=== PATIENT | female | born 2000 | race Caucasian/White ===

== ENCOUNTER 2023-12-07 12:33 | Emergency (ER) | payer OTHER, SELFPAY ==
[2023-12-07 12:39] VITALS: BP 138/73; PULSE 66; TEMP 36.6; O2SAT 99; BMI 27.5
[2023-12-07 12:48] VITALS: PULSE 65
--- NOTE | 2023-12-07 12:49 | ECG_ITS ---
The [facility] Test Date: 2023-12-07 Pat Name: GYPSY FLEMING Department: Room: - Gender: Female [employer]: : 2000 Requested By: ZUHAIR FRIEND Order Number: [id number] Reading MD: ZUHAIR FRIEND Measurements Intervals [place] Rate: 65 P: 30 OK: 140 QRS: 76 QRSD: 96 T: 57 QT: 366 QTc: 378 Interpretive Statements 1100 Sinus rhythm 1102 Sinus arrhythmia 9110 normal ECG Compared to ECG 05/03/2019 06:49:01 No significant changes Electronically Signed On 12-10-2023 6:51:50 EDT by ZUHAIR FRIEND
--- NOTE | 2023-12-07 12:49 | XR_ITS ---
The [address] [address] Patient Name: GYPSY FLEMING MRN: [id number] date: 2000 Sex: F Assigned Patient Location: ER Current Patient Location: ED.MAIN Accession/Order Number: [id number] Exam Date: 12/07/2023 13:03 Report Date: 12/07/2023 13:44 At the request of: MARIELLA LI Procedure: XR chest 1V EXAM: XR chest 1V HISTORY: chest pain COMPARISON: 05/10/2021 TECHNIQUE: Portable FINDINGS: LUNGS: No significant pulmonary parenchymal abnormalities. VASCULATURE: No increased pulmonary vasculature. PLEURA: No pneumothorax, effusion, or pleural thickening. CARDIAC: No cardiomegaly or cardiac silhouette abnormality. MEDIASTINUM: No visible mass or adenopathy. BONES: No fracture or visible bone lesion. OTHER: Negative. XR/XR chest 1V IMPRESSION: No acute cardiopulmonary process Electronically authenticated by: HECTOR BRAGA Date: 12/07/2023 13:44
[2023-12-07 13:15] VITALS: BP 117/74
--- NOTE | 2023-12-07 13:19 | ED_ITS ---
Documented by User: CHINO Arciniega 12/07/23 14:24 HPI HPI - General Adult General Chief complaint: Chest Pain Stated complaint: CHEST PAIN Time Seen by Provider: 12/07/23 13:14 Source: patient Mode of arrival: walk-in Limitations: no limitations History of Present Illness HPI narrative: Patient is a 23-year-old femaleTo the ER for evaluation of chest discomfort. Patient states since 8 AM this morning she has had 3 separate episodes of sharp left upper chest discomfort that lasts approximately 10 to 15 minutes then relieves. She denies any nausea or vomiting. She was sick a few weeks ago with a upper respiratory but symptoms have cleared. She has a chief concern of prior pericarditis, but notes that the symptoms are not persisting. She currently is asymptomatic with no chest pain palpitations or discomfort. She denies any abdominal pain or shortness of breath. Patient states the last episode occurred around 11:50 pm prior to arrival. LMP last week. Reviewed nurses triage note, patient specifically states that the pain does not worsen with deep breath, but randomly comes lasting for a period of time and then relieves, but is not worse with inspiration. Related Data Home Medications ?Medication ?Instructions ?Recorded ?Confirmed albuterol sulfate 90 mcg/actuation 2 puff inhalation Q8H PRN 12/07/23 12/07/23 aerosol inhaler shortness of breath or wheezing oxybutynin chloride 10 mg 10 mg PO DAILY 12/07/23 12/07/23 tablet,extended release 24 hr Allergies Allergy/AdvReac Type Severity Reaction Status Date / Time amoxicillin [From Augmentin] AdvReac Severe Verified 12/07/23 12:38 clavulanic acid AdvReac Severe Verified 12/07/23 12:38 [From Augmentin] Opioid HPI Opioid Management Most Recent Opioid Data: Last Pain Scale 0 12/07/23 13:35 Review of Systems ROS Constitutional Denies: fever or chills Eyes Denies: change in vision Ears, nose, mouth, and throat Denies: throat pain or neck pain Cardiovascular Reports: chest pain; Denies: palpitations, edema, swelling of feet/ankles, lightheadedness, shortness of breath with exertion or shortness of breath when lying down Respiratory Denies: shortness of breath, cough or wheezing Gastrointestinal Denies: abdominal pain, nausea or vomiting Musculoskeletal Reports: other (brief tingling left ring and little finger from palm, resolved. ); Denies: back pain or neck pain Integumentary/Breast Denies: rash or itching Neurological Denies: headache Psychiatric Denies: anxiety or mood swings [facility] Medical History (Updated 12/07/23 @ 14:24 by CHINO Arciniega) Pericarditis ?I31.9 - Disease of pericardium, unspecified (ICD-10) Exam Narrative Exam Narrative: Nurses notes and vital signs reviewed and patient is not hypoxic. General: The patient appears well and in no apparent distress. Patient is r esting comfortably on cart. Skin: Warm, dry, no pallor noted. Head: Normocephalic, atraumatic Neck: Supple, trachea mid-line, no tenderness, no lymphadenopathy Eye: Pupils are equal, round and reactive to light, EOMI Ears, Nose, Mouth, and Throat: TM are clear, normal light reflex, oral mucosa is moist, no posterior oropharynx erythema or hypertrophy, uvula is mid-line Cardiovascular: Regular Rate and Rhythm Respiratory: Patient is in no distress, no accessory muscle use, lungs are clear to auscultation, no wheezing, rales or rhonchi. Chest Wall: no tenderness, No pleuritic pain with patient taking deep breath at the bedside Back: non-tender, no CVA tenderness Musculoskeletal: normal ROM, no tenderness, no swelling GI: Normal bowel sounds, no tenderness to palpation, no masses appreciated. No rebound, guarding, or rigidity noted. Neurological: A&O x4 Psychiatric: Cooperative Constitutional Vital Signs, click to edit/add: Last Vital Signs Temp 97.8 F 12/07/23 12:39 Pulse 78 12/07/23 14:22 Resp 21 H 12/07/23 14:22 BP 106/60 12/07/23 14:17 Pulse Ox 99 12/07/23 14:17 O2 Del Method Room Air 12/07/23 12:39 Course Vital Signs Vital signs: Vital Signs Temperature 97.8 F 12/07/23 12:39 Pulse Rate 66 12/07/23 12:39 Respiratory Rate 18 12/07/23 12:39 Blood Pressure 138/73 12/07/23 12:39 Pulse Oximetry 99 12/07/23 12:39 Oxygen Delivery Method Room Air 12/07/23 12:39 Temperature 97.8 F 12/07/23 12:39 Pulse Rate 78 12/07/23 14:22 Respiratory Rate 21 H 12/07/23 14:22 Blood Pressure 106/60 12/07/23 14:17 Pulse Oximetry 99 12/07/23 14:17 Oxygen Delivery Method Room Air 12/07/23 12:39 Medical Decision Making MDM Narrative Medical decision making narrative: Discussed patient's concerns of prior pericarditis, episodes of chest pains sharp lasting 15 minutes, no Near syncopal symptoms reported, Patient observed in the ER with no return of symptoms, vital signs stable. EKG and troponin discussed, we reviewed patient's prior history of pericarditis but her symptoms currently are not persistent and she has been asymptomatic during her stay. We ambulated her after discussing her lab results and chest x- ray and patient remains asymptomatic. We discussed a follow-up to her family doctor. She may return to the ER if symptoms worsen or new symptoms develop. Consider taking Motrin and a work note provided. Patient thankful. Patient agreeable to return to the ER if symptoms persist or worsen. The patient is to followup with primary care physician in next 2-3 days or to return to the emergency department should any of the signs or symptoms worsen or new symptoms develop. Patient had questions answered. The patient agrees with the following Diagnosis and Treatment plan and the patient will be discharged home. Lab Data Lab results reviewed: Yes I reviewed the patient's lab results Labs: Lab Results 12/07/23 Range/Units 13:24 WBC 6.7 (4.0-11.0) 10^3/uL RBC 4.46 (4.20-5.40) 10^6/uL Hgb 13.3 (12.0-16.0) g/dL Hct 38.7 (36.0-48.0) % MCV 86.8 (81.0-99.0) fL MCH 29.8 (26.7-34.0) pg MCHC 34.4 (29.9-35.2) g/dL RDW 11.3 (11.0-15.0) % Plt Count 291 (150-450) 10^3/uL MPV 9.6 (9.5-13.5) fL Neut % (Auto) 57.6 (43.0-75.0) % Lymph % (Auto) 35.8 (20.5-60.0) % [place] % (Auto) 5.5 (1.7-12.0) % Eos % (Auto) 0.4 L (0.9-7.0) % Baso % (Auto) 0.4 (0.2-2.0) % Neut # (Auto) 3.9 (1.4-6.5) 10^3/uL Lymph # (Auto) 2.4 (1.2-3.8) 10^3/uL [place] # (Auto) 0.4 (0.3-0.8) 10^3/uL Eos # (Auto) 0.0 (0.0-0.7) 10^3/uL Baso # (Auto) 0.0 (0.0-0.1) 10^3/uL Abs Immat Gran (auto) 0.02 (0.00-0.03) 10^3/uL Imm/Tot Granulo (auto) 0.3 (0.0-0.5) % Sodium 140 (136-145) mmol/L Potassium 3.7 (3.5-5.1) mmol/L Chloride 102 (98-107) mmol/L Carbon Dioxide 27.4 (21.0-32.0) mmol/L Anion Gap 14.3 BUN 9.0 (7.0-18.0) mg/dL Creatinine 0.74 (0.55-1.02) mg/dL Est GFR ( Amer) >60 (>=60) Est GFR (Non-Af Amer) >60 (>=60) BUN/Creatinine Ratio 12.2 Glucose 99 (74-106) mg/dL Calcium 9.7 (8.5-10.1) mg/dL Total Bilirubin 0.7 (0.2-1.0) mg/dL AST 18 (15-37) U/L ALT 21 (14-59) U/L Alkaline Phosphatase 55 (46-116) U/L Troponin I High Sens <4.0 L (4.0-51.3) pg/mL Total Protein 8.0 (6.4-8.2) g/dL Albumin 4.3 (3.4-5.0) g/dL Globulin 3.7 g/dL Albumin/Globulin Ratio 1.2 Serum HCG, Qual Negative (NEGATIVE) Imaging Data Chest x-ray: Radiologist's impression: ITS Impressions Chest X-Ray 12/07/23 12:49 IMPRESSION: No acute cardiopulmonary process Electronically authenticated by: HECTOR BRAGA Date: 12/07/2023 13:44 ECG Data Attestation: I personally reviewed and interpreted this ECG as follows: Interpretation: EKG interpretation: Emergency Department physician interpretation, normal sinus rhythm 65 , no ectopy, no ST segment elevation, normal axis. Discharge Plan Discharge Stand Alone Forms: Portal Instructions Chief Complaint: Chest Pain Clinical Impression: Intermittent left-sided chest pain Patient Disposition: Home, Self-Care Time of Disposition Decision: 14:23 Prescriptions / Home Meds: No Action oxybutynin chloride 10 mg tablet extended release 24hr 10 mg PO DAILY albuterol sulfate 90 mcg/actuation HFA aerosol inhaler 2 puff INHALATION Q8H PRN (Reason: shortness of breath or wheezing) Print Language: Icelandic Instructions: Chest Pain (ED) Referrals: Niranjan Moura DO [Primary Care Provider] - As soon as possible Discharge Date/Time: 12/07/23 14:50 Documented by User: Krish Varghese MD 12/07/23 16:55 HPI HPI - General Adult General Chief complaint: Chest Pain Stated complaint: CHEST PAIN Time Seen by Provider: 12/07/23 13:14 Related Data Home Medications ?Medication ?Instructions ?Recorded ?Confirmed albuterol sulfate 90 mcg/actuation 2 puff inhalation Q8H PRN 12/07/23 12/07/23 aerosol inhaler shortness of breath or wheezing oxybutynin chloride 10 mg 10 mg PO DAILY 12/07/23 12/07/23 tablet,extended release 24 hr Allergies Allergy/AdvReac Type Severity Reaction Status Date / Time amoxicillin [From Augmentin] AdvReac Severe Verified 12/07/23 12:38 clavulanic acid AdvReac Severe Verified 12/07/23 12:38 [From Augmentin] Opioid HPI Opioid Management Most Recent Opioid Data: Last Pain Scale 0 12/07/23 13:35 PFSH PFSH Medical History (Updated 12/07/23 @ 14:24 by CHINO Arciniega) Pericarditis ?I31.9 - Disease of pericardium, unspecified (ICD-10) Exam Constitutional Vital Signs, click to edit/add: Last Vital Signs Temp 97.8 F 12/07/23 12:39 Pulse 78 12/07/23 14:22 Resp 21 H 12/07/23 14:22 BP 106/60 12/07/23 14:17 Pulse Ox 99 12/07/23 14:17 O2 Del Method Room Air 12/07/23 12:39 Course Vital Signs Vital signs: Vital Signs Temperature 97.8 F 12/07/23 12:39 Pulse Rate 66 12/07/23 12:39 Respiratory Rate 18 12/07/23 12:39 Blood Pressure 138/73 12/07/23 12:39 Pulse Oximetry 99 12/07/23 12:39 Oxygen Delivery Method Room Air 12/07/23 12:39 Temperature 97.8 F 12/07/23 12:39 Pulse Rate 78 12/07/23 14:22 Respiratory Rate 21 H 12/07/23 14:22 Blood Pressure 106/60 12/07/23 14:17 Pulse Oximetry 99 12/07/23 14:17 Oxygen Delivery Method Room Air 12/07/23 12:39 Medical Decision Making MDM Narrative Medical decision making narrative: Discussed patient's concerns of prior pericarditis, episodes of chest pains sharp lasting 15 minutes, no Near syncopal symptoms reported, Patient observed in the ER with no return of symptoms, vital signs stable. EKG and troponin discussed, we reviewed patient's prior history of pericarditis but her symptoms currently are not persistent and she has been asymptomatic during her stay. We ambulated her after discussing her lab results and chest x- ray and patient remains asymptomatic. We discussed a follow-up to her family doctor. She may return to the ER if symptoms worsen or new symptoms develop. Consider taking Motrin and a work note provided. Patient thankful. Patient agreeable to return to the ER if symptoms persist or worsen. The patient is to followup with primary care physician in next 2-3 days or to return to the emergency department should any of the signs or symptoms worsen or new symptoms develop. Patient had questions answered. The patient agrees with the following Diagnosis and Treatment plan and the patient will be discharged home. I, Dr Varghese, have reviewed the above progress note and course of action in the ER; agree with the above. I have gone over history and physical, and discussed disposition and treatment plan with the patient. Lab Data Labs: Lab Results 12/07/23 Range/Units 13:24 WBC 6.7 (4.0-11.0) 10^3/uL RBC 4.46 (4.20-5.40) 10^6/uL Hgb 13.3 (12.0-16.0) g/dL Hct 38.7 (36.0-48.0) % MCV 86.8 (81.0-99.0) fL MCH 29.8 (26.7-34.0) pg MCHC 34.4 (29.9-35.2) g/dL RDW 11.3 (11.0-15.0) % Plt Count 291 (150-450) 10^3/uL MPV 9.6 (9.5-13.5) fL Neut % (Auto) 57.6 (43.0-75.0) % Lymph % (Auto) 35.8 (20.5-60.0) % [place] % (Auto) 5.5 (1.7-12.0) % Eos % (Auto) 0.4 L (0.9-7.0) % Baso % (Auto) 0.4 (0.2-2.0) % Neut # (Auto) 3.9 (1.4-6.5) 10^3/uL Lymph # (Auto) 2.4 (1.2-3.8) 10^3/uL [place] # (Auto) 0.4 (0.3-0.8) 10^3/uL Eos # (Auto) 0.0 (0.0-0.7) 10^3/uL Baso # (Auto) 0.0 (0.0-0.1) 10^3/uL Abs Immat Gran (auto) 0.02 (0.00-0.03) 10^3/uL Imm/Tot Granulo (auto) 0.3 (0.0-0.5) % Sodium 140 (136-145) mmol/L Potassium 3.7 (3.5-5.1) mmol/L Chloride 102 (98-107) mmol/L Carbon Dioxide 27.4 (21.0-32.0) mmol/L Anion Gap 14.3 BUN 9.0 (7.0-18.0) mg/dL Creatinine 0.74 (0.55-1.02) mg/dL Est GFR ( Amer) >60 (>=60) Est GFR (Non-Af Amer) >60 (>=60) BUN/Creatinine Ratio 12.2 Glucose 99 (74-106) mg/dL Calcium 9.7 (8.5-10.1) mg/dL Total Bilirubin 0.7 (0.2-1.0) mg/dL AST 18 (15-37) U/L ALT 21 (14-59) U/L Alkaline Phosphatase 55 (46-116) U/L Troponin I High Sens <4.0 L (4.0-51.3) pg/mL Total Protein 8.0 (6.4-8.2) g/dL Albumin 4.3 (3.4-5.0) g/dL Globulin 3.7 g/dL Albumin/Globulin Ratio 1.2 Serum HCG, Qual Negative (NEGATIVE) Imaging Data Chest x-ray: Radiologist's impression: ITS Impressions Chest X-Ray 12/07/23 12:49 IMPRESSION: No acute cardiopulmonary process Electronically authenticated by: HECTOR BRAGA Date: 12/07/2023 13:44 ECG Data Attestation: I personally reviewed and interpreted this ECG as follows: (EKG interpretation. Normal sinus rhythm at 65 beats a minute. Normal axis deviation. No acute ST elevation, no acute ectopy. QTc of 378) Discharge Plan Discharge Stand Alone Forms: Portal Instructions Chief Complaint: Chest Pain Clinical Impression: Intermittent left-sided chest pain Patient Disposition: Home, Self-Care Time of Disposition Decision: 14:23 Prescriptions / Home Meds: No Action oxybutynin chloride 10 mg tablet extended release 24hr 10 mg PO DAILY albuterol sulfate 90 mcg/actuation HFA aerosol inhaler 2 puff INHALATION Q8H PRN (Reason: shortness of breath or wheezing) Print Language: Icelandic Instructions: Chest Pain (ED) Referrals: Niranjan Moura DO [Primary Care Provider] - As soon as possible Discharge Date/Time: 12/07/23 14:50
[2023-12-07 13:33] LABS: Basophils Percent Auto 0.4 % (0.2-2.0); Eosinophils Percent Auto 0.4 % (0.9-7.0); Hematocrit 38.7 % (36.0-48.0); Hemoglobin 13.3 g/dL (12.0-16.0); Immature Granulocytes Abs Auto 0.02 10^3/uL (0.00-0.03); Immature Granulocytes Pct Auto 0.3 % (0.0-0.5); Lymphocytes Absolute Auto 2.4 10^3/uL (1.2-3.8); Lymphocytes Percent Auto 35.8 % (20.5-60.0); Mean Corpuscular HGB Conc 34.4 g/dL (29.9-35.2); Mean Corpuscular Hemoglobin 29.8 pg (26.7-34.0); Mean Corpuscular Volume 86.8 fL (81.0-99.0); Mean Platelet Volume 9.6 fL (9.5-13.5); Monocytes Absolute Auto 0.4 10^3/uL (0.3-0.8); Monocytes Percent Auto 5.5 % (1.7-12.0); Neutrophils Absolute Auto 3.9 10^3/uL (1.4-6.5); Neutrophils Percent Auto 57.6 % (43.0-75.0); Platelet Count 291 10^3/uL (150-450); Red Blood Count 4.46 10^6/uL (4.20-5.40); Red Cell Distribution Width 11.3 % (11.0-15.0); White Blood Count 6.7 10^3/uL (4.0-11.0)
[2023-12-07 13:44] LABS: HCG Qualitative NEGATIVE (NEGATIVE)
[2023-12-07 13:55] LABS: Alanine Aminotransferase 21 U/L (14-59); Albumin Globulin Ratio 1.2; Albumin Level 4.3 g/dL (3.4-5.0); Alkaline Phosphatase 55 U/L (46-116); Anion Gap 14.3; Aspartate Amino Transferase 18 U/L (15-37); BUN Creatinine Ratio 12.2; Bilirubin Total 0.7 mg/dL (0.2-1.0); Calcium 9.7 mg/dL (8.5-10.1); Carbon Dioxide 27.4 mmol/L (21.0-32.0); Chloride 102 mmol/L (98-107); Estimated GFR (African America >60 (>=60); Estimated GFR (Non-African Ame >60 (>=60); Globulin 3.7 g/dL; Glucose 99 mg/dL (74-106); Potassium 3.7 mmol/L (3.5-5.1); Sodium 140 mmol/L (136-145); Troponin I High Sensitivity <4.0 pg/mL (4.0-51.3)
[2023-12-07 14:17] VITALS: BP 106/60; PULSE 76; O2SAT 99
[2023-12-07 14:22] VITALS: PULSE 78
== END 2023-12-07 14:50 | disposition home or self-care (01) ==
PROVIDERS: Personal Emergency Response Attendant; Emergency Provider Emergency Medicine; PCP Internal Medicine
DX: R07.9 Chest pain, unspecified (principal); Z79.899 Other long term (current) drug therapy
CPT/HCPCS: 36415; 71045; 80053; 84484; 84703; 85025; 93005; 99285

== ENCOUNTER 2023-12-11 15:18 | Outpatient (OUT) | payer OTHER, SELFPAY ==
[2023-12-11 15:59] LABS: Thyroid Stimulating Hormone 1.754 uIU/mL (0.358-3.740)
== END 2023-12-11 15:19 | disposition home or self-care (01) ==
LOC: LAB 15:19
PROVIDERS: PCP Internal Medicine; Visit Provider Internal Medicine
DX: R53.83 Other fatigue (principal)
CPT/HCPCS: 36415; 84443